=== PATIENT | female | born 1960 | race Two or more races ===

== ENCOUNTER 2024-03-27 18:39 | Observation (INO) ==
--- NOTE | 2024-03-27 18:46 | ED Triage Note ---
Date of Service March 27, 2024 Provider in Triage Author: Jake Elizabeth A History of Present Illness This patient was briefly evaluated while in triage. An abbreviated physical exam was performed. This patient is a 63-year-old Female who presents to the ED for evaluation of abnormal outpatient labs. Patient had PCP visit 5 days ago and had routine Diabetic labs. She is known diabetic. Labs returned today with sugar over 400. Not on any RX meds. Takes cinnamon and otc supplements. Physical Exam Limited Triage Exam: VITALS: Vitals are noted on the nurse's note and reviewed by myself. Vital signs stable. GENERAL: Well-developed, well-nourished, black female, who is in no acute distress and resting comfortably. Patient is cooperative with the examination. HEART: Regular rate and rhythm without murmurs gallops or rubs. LUNGS: Clear to auscultation bilaterally without wheezes, rales or rhonchi. No retractions or accessory muscle use. NEURO: Patient was alert and oriented to person place and time. CN II through XII grossly intact. Initial orders for labs and / or imaging were placed and patient was placed in the waiting area until a bed is available. Please see further documentation for the full ED course. MDM / Impression Impression Impression: Acute hyperglycemia, Hypertension, Noncompliance with medications, Anemia Impression: Hypertension Qualifiers: Hypertension type: unspecified Qualified Code(s): I10 - Essential (primary) hypertension Anemia Qualifiers: Anemia type: unspecified type Qualified Code(s): D64.9 - Anemia, unspecified
[2024-03-27 19:37] LABS: Basophils # (auto) 0.04 K/uL (0.00-0.20); Basophils % (auto) 0.5 %; Eosinophils # (auto) 0.19 K/uL (0.00-0.50); Eosinophils % (auto) 2.5 %; Hematocrit (blood only) 31.9 % (37.0-47.0); Hemoglobin 10.9 g/dl (12.0-16.0); Immature Granulocytes # (auto) 0.02 K/uL (0.01-0.20); Immature Granulocytes % (auto) 0.3 %; Lymphocytes # (auto) 2.01 K/uL (1.20-3.40); Lymphocytes % (auto) 26.1 %; Mean Corpuscular Hemoglobin 28.4 pg (25.0-34.0); Mean Corpuscular Hgb Conc 34.2 g/dL (32.0-36.0); Mean Corpuscular Volume 83.1 fL (80.0-100.0); Mean Platelet Volume 10.3 fL (9.4-12.4); Monocytes # (auto) 0.56 K/uL (0.11-0.59); Monocytes % (auto) 7.3 %; Neutrophils # (auto) 4.87 K/uL (1.40-6.50); Neutrophils % (auto) 63.3 %; Platelet Count 280 K/uL (130-400); RDW Coefficient of Variation 12.4 % (11.5-14.5); RDW Standard Deviation 37.6 fL (36.4-46.3); Red Blood Count 3.84 M/uL (4.20-5.40); White Blood Count 7.69 K/ul (4.8-10.8)
[2024-03-27 19:52] LABS: Albumin Level 3.5 gm/dl (3.4-5.0); BUN Creatinine Ratio 26.7 (10-20); Bilirubin,Total 0.2 mg/dl (0.2-1.0); Calcium 9.3 mg/dl (8.6-10.3); Creatinine Clr Calc Pharmacy 35.9 ml/min; Est GFR (African American) 49.7 ml/min; Est GFR (Non-African American) 42.9 ml/min; Globulin 3.5 gm/dl (2.5-4.0); Potassium 4.2 mmol/L (3.5-5.1)
[2024-03-27] MEDS: SODIUM CHLORIDE 0.9% 1,000 ML IV SCH (20:03)
[2024-03-27 20:10] LABS: Troponin I High Sensitivity 13.6 pg/ml (0-14)
[2024-03-27] MEDS: NovoLIN-R INSULIN PER UNIT CHARGE IV STA (20:37)
[2024-03-27] MEDS: LABETALOL HCL IV 5 MG/ML 20ML IV STA (20:37)
[2024-03-27] MEDS: SODIUM CHLORIDE 0.9% 500 ML IV ONE (20:38)
--- NOTE | 2024-03-27 20:43 | Emergency Department Note ---
Impression & Plan Acute hyperglycemia, Hypertension, Noncompliance with medications, Anemia ED Provider Note NAME: GILLES WONG AGE: 63 SEX: F : 1960 ARRIVES VIA: Walk-In INFORMANT: [Patient] ED PROVIDER(S): [Anthony South MD] CHIEF COMPLAINT: Hyperglycemia HISTORY OF PRESENT ILLNESS: The patient is a 63-year-old female with diabetes. She stopped taking her glipizide around 2 years ago. The patient had lab work performed in the outpatient setting and her sugar was over 400. She has lost around 15 pounds of weight. She was referred to the ER. Patient has been trying naturopathic remedies, she has been using cinnamon to control her blood sugar. The patient states that she was dizzy last night after eating, she has not had syncope. There is no chest pain, she is not short of breath. No fever. She is urinating frequently but this is a common thing for her. She does not feel excessively thirsty. In triage, she was noted to be hypertensive. PMHx/PSHx/Social Hx: See Below PHYSICAL EXAM: GENERAL: Patient is in no acute distress. HEENT: No acute trauma, normocephalic atraumatic, mucous membranes moist, no nasal congestion. NECK: No stridor, no adenopathy, no meningismus, trachea is midline. LUNGS: Clear to auscultation bilaterally, no wheeze, no rhonchi, breath sounds equal. HEART: 2/6 systolic murmur, regular rate and rhythm. ABDOMEN: Soft, nontender, no peritonitis. EXTREMITIES: No cyanosis, full range of motion of all the joints without pain or difficulty. NEUROLOGIC: Oriented x 3, no acute motor or sensory deficits, no focal weakness. SKIN: No jaundice, no diaphoresis. DIFFERENTIAL DIAGNOSIS: Medication noncompliance, dehydration, electrolyte imbalance, anemia, UTI, uncontrolled hypertension, among others. EMERGENCY DEPARTMENT PROCEDURES: MEDICAL DECISION MAKING: There is no leukocytosis. A mild anemia was seen with a hemoglobin of 10.9. There was a normal platelet count. VBG did not show any significant acidosis. Renal panel testing shows a creatinine elevation at 1.31, likely from some dehydration. Sodium was low at 130, likely from the glucose value of over 500. No concerning liver enzyme elevation. No evidence for pancreatitis. ECG shows a sinus rhythm, no obvious acute ischemia. Cardiac enzyme testing x 1 was not consistent with acute cardiac injury. Urinalysis showed glucose and some dehydration, no findings of infection. On exam, the patient was not toxic or febrile. The patient received IV saline for hydration. She was given 1.5 L. She received IV labetalol for her hypertension. She was given IV insulin for the high sugar value. The patient is hypertensive, she is hyperglycemic. She has had weight loss, she had stopped her medications. Given the severe hyperglycemia, I do think the patient will require a hospital stay. I did speak with the patient and case management. The on-call hospitalist was consulted. Of note, the patient's blood pressure has decreased with the labetalol, her glucose has decreased to the 200s with the IV fluids and IV insulin. Prior/Outside records/notes reviewed: Today's family practice note describing her presentation and the need for referral to the ER. ECG per my interpretation: Indication was hypertension and weakness. The ECG shows a sinus rhythm with a fairly short MS. The rate is 95. There is an old septal infarct. There is some nonspecific ST change noted primarily along the lateral leads. There is no acute ST elevation. No PVCs. The QTc is 427. Continuous Cardiac Monitoring per my interpretation: An order was placed for continuous cardiac monitoring. The monitor shows a rate of 95 with normal sinus rhythm. Imaging/x-ray results per my interpretation: Chronic Medical/Social conditions affecting care: Medication noncompliance. Care/Management discussed with: Case management, the on-call hospitalist. Level of care consideration(s): After review of the information above and other included data: --I believe the patient requires escalation of care to admission DISPOSITION: Admission Past Med/Surg History Problem List (Updated 03/28/24 @ 00:47 by Anthony South MD) Anemia (Acute) Noncompliance with medications (Acute) Hypertension (Acute) Acute hyperglycemia (Acute) Medical History Type 2 diabetes mellitus Surgical History Hx of section 1992 Family History Sister Breast cancer Diabetes Hypertension Mother Hypertension Denies family history of Ovarian cancer Prostate cancer Lung cancer Colorectal cancer Social History Smoking Status: Never smoker Second Hand Exposure: No; Do You Dip or Chew Tobacco: No; Hx Alcohol Use: Yes Alcohol type: wine Alcohol Intake Frequency: 2-3 x/Week Hx Substance Use: No Visual Impairment: Limited Hearing Ability: Normal marital status: marital status details: Current Living Situation: Alone current occupational status: unemployed How many Children do You have: 3 Feels Safe at Home: Yes Childhood Exposure to Second-Hand Smoke: No Diet: regular Diet Comment: well balanced diet caffeine: Yes (coffee ) during the past year weight has: decreased > 10 lbs Dental Care, Regularly: No Physical Activity Frequency: Daily Seatbelt Use: always Sunscreen Use: No Assistive Devices: Glasses Allergies Allergies Allergy/AdvReac Type Severity Reaction Status Date / Time No Known Allergies Allergy Verified 03/27/24 20:42 Home Meds Home Medications Medication Instructions Recorded Confirmed ascorbic acid 30 mg-collagen, 1 tab PO DAILY 03/27/24 03/27/24 hydrolyzed 833.3 mg tablet (Collagen Skin Renewal) cholecalciferol (vitamin D3) 25 0 mcg PO DAILY 03/27/24 03/27/24 mcg (1,000 unit) capsule (Vitamin D3) cinnamon bark 500 mg capsule 500 mg PO DAILY 03/27/24 03/27/24 (Cinnamon) cod liver oil 1 cap PO DAILY 03/27/24 03/27/24 magnesium oxide 0 mg PO DAILY 03/27/24 03/27/24 multivitamin 1 tab PO DAILY 03/27/24 03/27/24 omega-3 fatty acids 1,000 mg 1,000 mg PO DAILY 03/27/24 03/27/24 capsule Results & Data (ED) Vital Signs Vital Signs - 24 hr 03/27/24 18:42 03/27/24 20:01 03/27/24 20:04 Temperature 36.9 C Temperature Source Skin Pulse Rate 71 Pulse Rate [Apical] 96 H Pulse Rate from SpO2 Sensor Pulse Rhythm [Apical] Regular Respiratory Rate 18 20 Respiratory Effort / Characteristics Non-Labored Spontaneous Respiratory Depth Normal Respiratory Pattern Regular Blood Pressure 180/87 H 199/105 H Blood Pressure Mean 118 121 Pulse Oximetry 98 98 Oxygen Delivery Method Room Air Room Air Sepsis Recent Fever Within 48 Hours No Sepsis New/Unexplained Change in Mental Status No Sepsis Action Taken by Nursing No Action Required 03/27/24 20:12 03/27/24 20:21 03/27/24 20:30 Temperature Temperature Source Pulse Rate 95 H 94 H 96 H Pulse Rate [Apical] Pulse Rate from SpO2 Sensor 95 H 94 H 96 H Pulse Rhythm [Apical] Respiratory Rate 15 10 L 14 Respiratory Effort / Characteristics Respiratory Depth Respiratory Pattern Blood Pressure Blood Pressure Mean Pulse Oximetry 99 100 100 Oxygen Delivery Method Sepsis Recent Fever Within 48 Hours Sepsis New/Unexplained Change in Mental Status Sepsis Action Taken by Nursing 03/27/24 20:30 03/27/24 20:30 03/27/24 20:37 Temperature Temperature Source Pulse Rate 95 H Pulse Rate [Apical] Pulse Rate from SpO2 Sensor Pulse Rhythm [Apical] Respiratory Rate Respiratory Effort / Characteristics Respiratory Depth Respiratory Pattern Blood Pressure 200/112 H 200/112 H 200/112 H Blood Pressure Mean 147 147 Pulse Oximetry Oxygen Delivery Method Sepsis Recent Fever Within 48 Hours Sepsis New/Unexplained Change in Mental Status Sepsis Action Taken by Nursing 03/27/24 20:39 03/27/24 20:43 03/27/24 20:45 Temperature Temperature Source Pulse Rate 97 H 97 H Pulse Rate [Apical] Pulse Rate from SpO2 Sensor 97 H 98 H Pulse Rhythm [Apical] Respiratory Rate 16 19 Respiratory Effort / Characteristics Respiratory Depth Respiratory Pattern Blood Pressure 195/90 H Blood Pressure Mean 135 Pulse Oximetry 100 100 Oxygen Delivery Method Sepsis Recent Fever Within 48 Hours Sepsis New/Unexplained Change in Mental Status Sepsis Action Taken by Nursing 03/27/24 20:45 03/27/24 20:45 03/27/24 20:51 Temperature Temperature Source Pulse Rate 96 H Pulse Rate [Apical] Pulse Rate from SpO2 Sensor 96 H Pulse Rhythm [Apical] Respiratory Rate 17 Respiratory Effort / Characteristics Respiratory Depth Respiratory Pattern Blood Pressure 181/90 H 181/90 H Blood Pressure Mean 101 101 Pulse Oximetry 100 Oxygen Delivery Method Sepsis Recent Fever Within 48 Hours Sepsis New/Unexplained Change in Mental Status Sepsis Action Taken by Nursing 03/27/24 20:56 03/27/24 21:00 03/27/24 21:00 Temperature Temperature Source Pulse Rate 96 H 97 H Pulse Rate [Apical] Pulse Rate from SpO2 Sensor 97 H Pulse Rhythm [Apical] Respiratory Rate 16 Respiratory Effort / Characteristics Respiratory Depth Respiratory Pattern Blood Pressure 181/90 H 169/89 H Blood Pressure Mean 114 Pulse Oximetry 97 Oxygen Delivery Method Sepsis Recent Fever Within 48 Hours Sepsis New/Unexplained Change in Mental Status Sepsis Action Taken by Nursing 03/27/24 21:12 03/27/24 21:15 03/27/24 21:15 Temperature Temperature Source Pulse Rate 97 H 95 H Pulse Rate [Apical] Pulse Rate from SpO2 Sensor 97 H 95 H Pulse Rhythm [Apical] Respiratory Rate 21 15 Respiratory Effort / Characteristics Respiratory Depth Respiratory Pattern Blood Pressure 176/93 H Blood Pressure Mean 115 Pulse Oximetry 98 98 Oxygen Delivery Method Sepsis Recent Fever Within 48 Hours Sepsis New/Unexplained Change in Mental Status Sepsis Action Taken by Shelter Medications Current Medication List: was personally reviewed by me Laboratory Data Attestation: I reviewed the patient's lab results. 03/27/24 19:25 03/27/24 19:25 Lab Results 03/27/24 03/27/24 03/27/24 Range/Units 19:25 20:37 20:58 WBC 7.69 (4.8-10.8) K/ul RBC 3.84 L (4.20-5.40) M/uL Hgb 10.9 L (12.0-16.0) g/dl Hct 31.9 L (37.0-47.0) % MCV 83.1 (80.0-100.0) fL MCH 28.4 (25.0-34.0) pg MCHC 34.2 (32.0-36.0) g/dL RDW Std Deviation 37.6 (36.4-46.3) fL RDW Coeff of Nohemi 12.4 (11.5-14.5) % Plt Count 280 (130-400) K/uL MPV 10.3 (9.4-12.4) fL Immature Gran % (Auto) 0.3 % Neut % (Auto) 63.3 % Lymph % (Auto) 26.1 % Barren % (Auto) 7.3 % Eos % (Auto) 2.5 % Baso % (Auto) 0.5 % Neut # (Auto) 4.87 (1.40-6.50) K/uL Lymph # (Auto) 2.01 (1.20-3.40) K/uL Barren # (Auto) 0.56 (0.11-0.59) K/uL Eos # (Auto) 0.19 (0.00-0.50) K/uL Baso # (Auto) 0.04 (0.00-0.20) K/uL Immature Gran # (Auto) 0.02 (0.01-0.20) K/uL VBG pH 7.39 (7.36-7.41) VBG pCO2 50 (38-50) mmHg VBG pO2 22 mmHg VBG HCO3 30 mmol/L VBG O2 Saturation < 60.0 % VBG Base Excess 4.2 mEq/L Sodium 130 L (136-145) mmol/L Potassium 4.2 (3.5-5.1) mmol/L Chloride 96 L (98-107) mmol/L Carbon Dioxide 28 (21-32) mmol/L Anion Gap 6 (3-11) BUN 35 H (6-23) mg/dl Creatinine 1.31 H (0.6-1.2) mg/dl Est Cr Clr Drug Dosing 35.9 ml/min Est GFR ( Amer) 49.7 ml/min Est GFR (Non-Af Amer) 42.9 ml/min BUN/Creatinine Ratio 26.7 H (10-20) Glucose 522 H* (70-99(Fasting)) mg/dl POC Glucose 453 H* (70-99) mg/dl Calcium 9.3 (8.6-10.3) mg/dl Magnesium 1.8 (1.7-2.4) mg/dl Iron (35-150) mcg/dl TIBC (250-450) mcg/dl Unsaturated IBC (155-355) mcg/dl Transferrin % Sat (15-50) % Ferritin (8-388) ng/ml Total Bilirubin 0.2 (0.2-1.0) mg/dl AST 18 (13-39) U/L ALT 12 (7-52) U/L Alkaline Phosphatase 97 (34-104) U/L Troponin I High Sens 13.6 (0-14) pg/ml Total Protein 7.0 (6.0-8.3) gm/dl Albumin 3.5 (3.4-5.0) gm/dl Globulin 3.5 (2.5-4.0) gm/dl Albumin/Globulin Ratio 1.0 (0.9-2) Lipase 59 (11-82) U/L 03/27/ Range/Units 20:59 WBC (4.8-10.8) K/ul RBC (4.20-5.40) M/uL Hgb (12.0-16.0) g/dl Hct (37.0-47.0) % MCV (80.0-100.0) fL MCH (25.0-34.0) pg MCHC (32.0-36.0) g/dL RDW Std Deviation (36.4-46.3) fL RDW Coeff of Nohemi (11.5-14.5) % Plt Count (130-400) K/uL MPV (9.4-12.4) fL Immature Gran % (Auto) % Neut % (Auto) % Lymph % (Auto) % Barren % (Auto) % Eos % (Auto) % Baso % (Auto) % Neut # (Auto) (1.40-6.50) K/uL Lymph # (Auto) (1.20-3.40) K/uL Barren # (Auto) (0.11-0.59) K/uL Eos # (Auto) (0.00-0.50) K/uL Baso # (Auto) (0.00-0.20) K/uL Immature Gran # (Auto) (0.01-0.20) K/uL VBG pH (7.36-7.41) VBG pCO2 (38-50) mmHg VBG pO2 mmHg VBG HCO3 mmol/L VBG O2 Saturation % VBG Base Excess mEq/L Sodium (136-145) mmol/L Potassium (3.5-5.1) mmol/L Chloride (98-107) mmol/L Carbon Dioxide (21-32) mmol/L Anion Gap (3-11) BUN (6-23) mg/dl Creatinine (0.6-1.2) mg/dl Est Cr Clr Drug Dosing ml/min Est GFR ( Amer) ml/min Est GFR (Non-Af Amer) ml/min BUN/Creatinine Ratio (10-20) Glucose (70-99(Fasting)) mg/dl POC Glucose (70-99) mg/dl Calcium (8.6-10.3) mg/dl Magnesium (1.7-2.4) mg/dl Iron 55 (35-150) mcg/dl TIBC 237 L (250-450) mcg/dl Unsaturated IBC 182 (155-355) mcg/dl Transferrin % Sat 23 (15-50) % Ferritin 173.3 (8-388) ng/ml Total Bilirubin (0.2-1.0) mg/dl AST (13-39) U/L ALT (7-52) U/L Alkaline Phosphatase (34-104) U/L Troponin I High Sens (0-14) pg/ml Total Protein (6.0-8.3) gm/dl Albumin (3.4-5.0) gm/dl Globulin (2.5-4.0) gm/dl Albumin/Globulin Ratio (0.9-2) Lipase (11-82) U/L Administered Medications Atorvastatin Calcium (Atorvastatin 20 Mg Tab) 20 mg PO QPM JEM Stop: 04/26/24 21:39 Last Admin: 03/27/24 22:11 Dose: 20 mg Documented By: FREYA Insulin Aspart (Insulin Aspart Per Unit Charge) 0 units SC Q6H JEM Stop: 04/26/24 21:29 Last Admin: 03/27/24 21:48 Dose: 4 units Documented By: FREYA Co-signed By: ANGELIQUE Insulin Glargine (Lantus Per Unit Charge) 15 units SQ BID JEM Stop: 04/26/24 21:14 Last Admin: 03/27/24 21:48 Dose: 15 units Documented By: FREYA Co-signed By: ANGELIQUE Discontinued Medications Sodium Chloride (Nss) 1,000 mls @ 999 mls/hr IV .Q1H1M JEM Stop: 03/27/24 20:00 Last Infusion: 03/27/24 21:09 Dose: Infused Documented By: Admin: 03/27/24 20:03 Dose: 999 mls/hr Documented By: FREYA Sodium Chloride (Nss) 500 mls @ 999 mls/hr IV .Q31M ONE Stop: 03/27/24 21:01 Last Infusion: 03/27/24 21:09 Dose: Infused Documented By: Admin: 03/27/24 20:38 Dose: 999 mls/hr Documented By: FREYA Insulin Human Regular (Novolin-R Insulin Per Unit Charge) 10 units IV NOW STA Stop: 03/27/24 20:32 Last Admin: 03/27/24 20:37 Dose: 10 units Documented By: FREYA Co-signed By: BARRIE Labetalol HCl (Labetalol Hcl Iv 5 Mg/Ml 20ml) 10 mg IV NOW STA Stop: 03/27/24 20:32 Last Admin: 03/27/24 20:37 Dose: 10 mg Documented By: FREYA Co-signed By: BARRIE Lisinopril (Lisinopril 10 Mg Tab) 10 mg PO NOW STA Stop: 03/27/24 21:38 Last Admin: 03/27/24 22:11 Dose: 10 mg Documented By: FREYA Discharge Plan Visit Data Chief Complaint: Hyperglycemia Stated Complaint: ABN BLOOD TEST ED Provider: Anthony South Discharge Problem: Acute hyperglycemia, Hypertension, Noncompliance with medications, Anemia Patient Disposition: Admitted As Inpatient Condition: Fair Discharge Instructions Interventions: ED Discharge Assessment Last Done: 03/27/24 22:04 Discharge Problem: Hypertension Qualifiers: Hypertension type: unspecified Qualified Code(s): I10 - Essential (primary) hypertension Anemia Qualifiers: Anemia type: unspecified type Qualified Code(s): D64.9 - Anemia, unspecified
[2024-03-27 21:11] LABS: Base Excess VBG 4.2 mEq/L; HCO3 VBG 30 mmol/L; Oxygen Saturation VBG < 60.0 %; PCO2 VBG 50 mmHg (38-50); PO2 VBG 22 mmHg; pH VBG 7.39 (7.36-7.41)
[2024-03-27 21:12] LABS: Magnesium 1.8 mg/dl (1.7-2.4)
[2024-03-27] MEDS ORDERED: GLUCOSE 10 TAB/TUBE PO PRN (21:15)
[2024-03-27] MEDS ORDERED: GLUCOSE 40% GEL 15 GM TUBE PO PRN (21:15)
[2024-03-27] MEDS ORDERED: CARBOHYDRATES FOR HYPOGLYCEMIA PO PRN (21:15)
[2024-03-27] MEDS ORDERED: DEXTROSE 50% 50 ML SYRINGE IV PRN (21:15)
[2024-03-27] MEDS ORDERED: GLUCAGON FOR INJ 1 MG VIAL SQ PRN (21:15)
--- NOTE | 2024-03-27 21:38 | History & Physical Report ---
Date of Service March 27, 2024 Assessment & Plan (1) Type 2 diabetes mellitus: Plan: Assessment: 1. Diabetes mellitus type 2 very uncontrolled. A1c is 13.8. Will do twice daily Lantus. Will do insulin sliding scale as well. Diabetes education consultation. Oral antihyperglycemic's can be considered such as Jardiance and metformin excetra pending patient's clinical course. 2. Uncontrolled essential hypertension. Will begin with lisinopril 10 mg daily. She did have a dose of labetalol. Will order some as needed hydralazine. 3. Pseudohyponatremia treated diabetes recheck sodium level in the morning. 4. Anemia unknown etiology. Will obtain iron studies and stools for occult blood. 5. Acute versus chronic kidney injury. Creatinine is 1.3. She has had a liter and a half of saline. Will see what her repeat creatinine is in the morning. 5. Hyperlipidemia. Total cholesterol is 310. LDL is 161. Will start Lipitor 20 mg daily. Plan: As described above. Please refer to orders for further planning. Patient seems that she may not be compliant with our recommendations. She wants to treat her things naturally. We explained to her that importance of treating her metabolic syndrome. Will order the medications as appropriate and see how she does make further recommendations pending clinical course. History of Present Illness Chief Complaint: Hyperglycemia Primary Care Provider: Raghavendra Marquis DO This is a 63-year-old female patient this time who has a history of hypertension and diabetes mellitus. She used to be treated for both of these things medically. She is unsure which blood pressure medication she was on but she used to be on glipizide for diabetes. The patient stopped all her prescription medications approximately 2 years ago in an attempt to treat her disease processes from a naturopathic holistic point of view. Today she had outpatient labs and had a blood glucose greater than 400 and was sent to the ER for further evaluation and treatment. In the ER vital labs he was found to have a blood glucose level of 522 she was nonketotic she was not acidotic. Creatinine was 1.3. She had pseudohyponatremia at 130. Corrected sodium was within normal limits. Hemoglobin was noted to be 10.9 g/dL unknown if this is acute or chronic. The patient has been residing in [place] till recently she moved back to [place] with her youngest son who is having medical issues including depression. Course in the emergency department the patient received 10 mg of IV labetalol she received 10 units of regular insulin IV. She received a liter and a half of saline. We are called admit patient for further evaluation and treatment. Allergies Allergy/AdvReac Type Severity Reaction Status Date / Time No Known Allergies Allergy Verified 03/27/24 20:42 Home Medications Medication Instructions Recorded Confirmed Type ascorbic acid 30 mg-collagen, 1 tab PO DAILY 03/27/24 03/27/24 History hydrolyzed 833.3 mg tablet (Collagen Skin Renewal) cholecalciferol (vitamin D3) 25 0 mcg PO DAILY 03/27/24 03/27/24 History mcg (1,000 unit) capsule (Vitamin D3) cinnamon bark 500 mg capsule 500 mg PO DAILY 03/27/24 03/27/24 History (Cinnamon) cod liver oil 1 cap PO DAILY 03/27/24 03/27/24 History magnesium oxide 0 mg PO DAILY 03/27/24 03/27/24 History multivitamin 1 tab PO DAILY 03/27/24 03/27/24 History omega-3 fatty acids 1,000 mg 1,000 mg PO DAILY 03/27/24 03/27/24 History capsule Past Med/Surg History Problem List (Updated 03/22/24 @ 15:25 by Raghavendra Marquis DO) Type 2 diabetes mellitus Surgical History Hx of section Family History Sister Breast cancer Diabetes Hypertension Mother Hypertension Denies family history of Ovarian cancer Prostate cancer Lung cancer Colorectal cancer Social History Smoking Status: Never smoker Second Hand Exposure: No; Do You Dip or Chew Tobacco: No; Hx Alcohol Use: Yes Alcohol type: wine Alcohol Intake Frequency: 2-3 x/Week Hx Substance Use: No Visual Impairment: Limited Hearing Ability: Normal marital status: marital status details: Current Living Situation: Alone current occupational status: unemployed How many Children do You have: 3 Feels Safe at Home: Yes Childhood Exposure to Second-Hand Smoke: No Diet: regular Diet Comment: well balanced diet caffeine: Yes (coffee ) during the past year weight has: decreased > 10 lbs Dental Care, Regularly: No Physical Activity Frequency: Daily Seatbelt Use: always Sunscreen Use: No Assistive Devices: Glasses Review of Systems Review of Systems: A 10 point review of system was obtained and unless otherwise stated here or in history of present illness are negative and noncontributory to chief complaint. Physical Exam Physical Exam: In General: In general 63-year-old female again if patient is send is alert and oriented x 3. She interacts appropriately and pleasantly. The patient is adamant that she does not want insulin long-term. She is adamant she does not want to go on metformin which she was on in the past. We told her at this point insulin is recommended given her A1c of 13.8%. HEENT: Normocephalic atraumatic pupils are equal round and reactive to light bilaterally. No scleral icterus no conjunctival injection external auditory canals are patent septum is in the midline nose is without discharge oral mucosa is pink and moist without lesion. NECK: Supple no rigidity no lymphadenopathy no thyromegaly no carotid bruits no JVD no masses. HEART: Regular rate and rhythm I do not appreciate any ectopy or rub. No murmur. LUNGS: Clear to auscultation bilaterally and anteriorly with no evidence of adventitious sounds/wheezes rales or rhonchi. ABDOMEN: Soft nontender, no rebound, no peritoneal signs, positive bowel sounds, no appreciable organomegaly. EXTREMITIES: Intact, no peripheral cyanosis, clubbing or edema. Strength is 5 out of 5 in extremities x4, no pathological reflexes. NEUROLOGICAL: Cranial nerves II through XII are grossly intact with no focal deficit elicited upon examination. No tremor. Results & Data Results & Data Vital Signs (Past 12 Hours) Vital Signs Temp Pulse Pulse Resp BP Pulse Ox O2 Del Method 03/27/24 20:56 96 H 181/90 H 03/27/24 20:51 96 H 17 100 03/27/24 20:45 181/90 H 03/27/24 20:45 181/90 H 03/27/24 20:45 97 H 19 100 03/27/24 20:43 195/90 H 03/27/24 20:39 97 H 16 100 03/27/24 20:37 95 H 200/112 H 03/27/24 20:30 200/112 H 03/27/24 20:30 200/112 H 03/27/24 20:30 96 H 14 100 03/27/24 20:21 94 H 10 L 100 03/27/24 20:12 95 H 15 99 03/27/24 20:04 199/105 H 03/27/24 20:01 96 H 20 98 Room Air 03/27/24 18:42 36.9 C 71 18 180/87 H 98 Room Air Code Status & VTE Plan Code Status DO NOT RESUSCITATE. 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 She is alert and oriented x 3 she wishes to be a DO NOT RESUSCITATE and she is of sound mind therefore we will do if there is a DO NOT RESUSCITATE. This was discussed in detail with her. VTE Prophylaxis Plan VTE Prophylaxis will be ordered: Yes PG Care Time/CCT Total # of Minutes Spent Total Time Spent with Patient: Total time spent is greater than 50% in coordination of care (as documented) at patient's floor/unit and/or counseling patient: Coding Level of Care Code 76667 INT INP/OBS CARE 3/75MIN Diagnoses Type 2 diabetes mellitus E11.9
[2024-03-27] MEDS: LANTUS PER UNIT CHARGE SQ SCH (21:48)
[2024-03-27] MEDS: INSULIN ASPART PER UNIT CHARGE SC SCH (21:48)
[2024-03-27] MEDS: lisinopril 10 MG TAB PO STA (22:11)
[2024-03-27] MEDS: ATORVASTATIN 20 MG TAB PO SCH (22:11)
[2024-03-27 22:27] LABS: Ferritin 173.3 ng/ml (8-388)
[2024-03-27 22:52] LABS: Appearance Urine Clear (Clear); Bacteria Urine Automated None Seen (None Seen); Bilirubin Urine Negative (Negative); Blood Urine Negative (Negative); Cast Urine Automated 0-2 /lpf (0-2); Color Urine Yellow; Glucose Urine UA 3+ (Negative); Ketones Urine Trace (Negative); Leukocyte Esterase Urine Negative (Negative); Nitrite Urine Negative (Negative); Protein Urine 2+ (Negative); RBC Urine Automated 0-2 /hpf (0-2); Specific Gravity Urine 1.024 (1.000-1.030); Urobilinogen Urine Negative (Negative)
[2024-03-28] MEDS: hydrALAZINE HCL 20 MG/ML VIAL IV PRN (00:55)
[2024-03-28] MEDS ORDERED: ACETAMINOPHEN 1,000 MG/100 ML VIAL IV PRN (04:09)
[2024-03-28] MEDS ORDERED: INSULIN ASPART PER UNIT CHARGE SC SCH (07:30)
[2024-03-28] MEDS ORDERED: MAGNESIUM OXIDE 200 MG PO SCH (09:00)
[2024-03-28] MEDS ORDERED: CHOLECALCIFEROL 25 MCG (1000 UNITS) TAB PO SCH (09:00)
[2024-03-28] MEDS: lisinopril 10 MG TAB PO SCH (09:21)
[2024-03-28] MEDS: INSULIN ASPART PER UNIT CHARGE SC SCH (09:21)
--- NOTE | 2024-03-28 10:09 | Electrocardiogram Report ---
Test Reason : Blood Pressure : / mmHG Vent. Rate : 095 BPM Atrial Rate : 095 BPM P-R Int : 110 ms QRS Dur : 060 ms QT Int : 340 ms P-R-T Axes : 033 022 005 degrees QTc Int : 427 ms Sinus rhythm with short VA Left atrial enlargement Possible Old Septal infarct Abnormal ECG No previous ECGs available Confirmed by Guillermo Davidson ([id number]) on 03/28/2024 10:08:52 AM Referred By: Raghavendra Marquis Confirmed By:Guillermo Davidson
[2024-03-28 10:39] LABS: Hemoglobin 9.7 g/dl (12.0-16.0); Mean Corpuscular Hemoglobin 28.4 pg (25.0-34.0); Mean Corpuscular Hgb Conc 33.4 g/dL (32.0-36.0); Mean Platelet Volume 10.1 fL (9.4-12.4); Platelet Count 220 K/uL (130-400); RDW Coefficient of Variation 12.5 % (11.5-14.5); RDW Standard Deviation 38.6 fL (36.4-46.3); Red Blood Count 3.41 M/uL (4.20-5.40); White Blood Count 8.55 K/ul (4.8-10.8)
[2024-03-28 10:40] LABS: Calcium 8.8 mg/dl (8.6-10.3); Creatinine Clr Calc Pharmacy 45.6 ml/min; Est GFR (African American) 66.5 ml/min; Est GFR (Non-African American) 57.4 ml/min; Potassium 4.2 mmol/L (3.5-5.1)
--- NOTE | 2024-03-28 19:53 | Hospitalist Progress Note ---
Date of Service March 28, 2024 Assessment & Plan (1) Uncontrolled diabetes mellitus with hyperglycemia, without long-term current use of insulin: Plan: Patient presented after outpatient lab work revealed blood sugar > 400 and was advised to present to ED. - A1c is 13.8. Diabetes mellitus type 2 very uncontrolled. - Subjectively, patient does report signs and symptoms of hyperglycemia, including neuropathy and blurred vision. - Given lower BMI, suspect hyperglycemia is likely due to insulin deficiency/beta cell burnout. - Pseudohyponatremia in setting of hyperglycemia. Sodium 138 on 03/28. - Diabetes education consultation. The only oral medication patient agrees to his glipizide. She refuses metformin. GLP-1 likely not ideal due to weight loss over the past 3 years/normal BMI. Jardiance alone without insulin would likely increased risk for euglycemia DKA. DPP-4 likely ineffective in getting blood glucose values to target. 1.) Transition to once daily Lantus in AM. 2.) Further insulin adjustments, as needed, to help maintain BG values in a safe range. 3.) Will continue to monitor BG values and follow-up for additional diabetes assessment/education prn. -- certified adapted physical educator plans to meet with patient tomorrow, 03/29, to practice self injection. -- Review certified adapted physical educator note for recommendations/prescriptions needed at discharge. - I spoke with inpatient pharmacist about how many units of Lantus to give in a.m. as it was after hours and diabetes educator was no longer in house. Recommended 30 units in a.m. and to still give the 15 units of Lantus tonight, 03/28. - Unclear if patient is agreeable to meal time coverage. I would definitely recommend it given her A1c. NovoLog ordered continued at this time. - Patient recently established care with Dr. Raghavendra Marquis. She is agreeable to follow-up for diabetes care on discharge. (2) Hyperlipidemia: Plan: Total cholesterol is 310. LDL is 161. - Continue Lipitor 20 mg daily, started on admission. Hypertension - Uncontrolled essential hypertension. - Continue lisinopril 10 mg daily, started on admission. - PRN hydralazine ordered with parameters. (3) HARI (acute kidney injury): Plan: Acute versus chronic kidney injury. Creatinine 1.3 on admission. Given 1.5 L of saline. - Creatinine 03/28 1.03. BUN remains elevated, but decreased to 33. (4) Anemia: Plan: Anemia unknown etiology. - Hemoglobin 10.4 on admission. Hgb 9.7 on 03/28, most likely a dilutional effect from IVF. - Iron studies revealed iron 55, TIBC low at 237, unsaturated IBC 182, transferrin percent sat 23%, ferritin 173.3 - No signs of acute bleeding. Continue to monitor. - No indication for transfusion at this time. Plan Discussed case with diabetes educator Discussed case with pharmacist Educated patient on long-term effects of uncontrolled diabetes, hypertension, and hyperlipidemia CODE STATUS: DNR/DNI Admission and Anticipated Discharge Date Admission Date: March 27, 2024 Subjective Patient seen and evaluated at bedside in ED. She reported a headache this morning, but notes this was relieved with Tylenol. We had a lengthy discussion about the risks of uncontrolled diabetes, hypertension, and hyperlipidemia. Patient is subjectively not excited about taking medication, but she is a greeable. Patient is to meet with diabetes educator to discuss options for blood sugar control. Patient has no other complaints at this time. Physical Exam Physical Exam: General: No acute distress, nondiaphoretic, well-developed, well-nourished. Skin: The skin was without rashes, erythema, edema, or bruising. Cardiac: Regular rate and rhythm without murmurs gallops or rubs. Pulm: Clear to auscultation bilaterally without wheezes, rales or rhonchi. No respiratory distress. Abdominal: Soft, nontender, nondistended. Bowel sounds present. Neuro: A&O x3. No focal neurological deficits. Results & Data Results & Data Vital Signs (Past 12 Hours) Vital Signs Temp Pulse Pulse Resp BP BP Pulse Ox 03/28/24 17:55 89 03/28/24 16:56 86 03/28/24 13:00 36.8 C 85 20 158/83 H 99 03/28/24 10:00 88 15 139/75 100 03/28/24 09:00 87 16 158/83 H 100 03/28/24 08:09 81 13 124/75 100 O2 Del Method 03/28/24 17:55 03/28/24 16:56 03/28/24 13:00 Room Air 03/28/24 10:00 03/28/24 09:00 06/26/24 08:09 Laboratory Results Reviewed CBC Reviewed BMP Reviewed iron studies PG Care Time/CCT Total # of Minutes Spent Total Time Spent with Patient: Total time spent is greater than 50% in coordination of care (as documented) at patient's floor/unit and/or counseling patient: Coding Level of Care Code 61956 SUB INP/OBS CARE 3/50MIN Diagnoses Uncontrolled diabetes mellitus with hyperglycemia, without long-term current use of insulin E11.65 Hyperlipidemia E78.5 HARI (acute kidney injury) N17.9 Anemia D64.9 Anemia type: unspecified type (4) Anemia Anemia type: unspecified type Qualified Code(s): D64.9 - Anemia, unspecified
[2024-03-28] MEDS: ACETAMINOPHEN 325 MG TAB PO PRN (23:31)
[2024-03-29 07:11] LABS: Hematocrit (blood only) 29.7 % (37.0-47.0); Hemoglobin 9.8 g/dl (12.0-16.0); Mean Corpuscular Hemoglobin 28.2 pg (25.0-34.0); Mean Corpuscular Volume 85.6 fL (80.0-100.0); Mean Platelet Volume 10.4 fL (9.4-12.4); Platelet Count 239 K/uL (130-400); RDW Coefficient of Variation 12.7 % (11.5-14.5); RDW Standard Deviation 39.5 fL (36.4-46.3); Red Blood Count 3.47 M/uL (4.20-5.40); White Blood Count 7.56 K/ul (4.8-10.8)
--- NOTE | 2024-03-29 07:22 | Hospitalist Progress Note ---
Date of Service March 29, 2024 Assessment & Plan (1) Uncontrolled diabetes mellitus with hyperglycemia, without long-term current use of insulin: Plan: Patient presented after outpatient lab work revealed blood sugar > 400 and was advised to present to ED. - A1c is 13.8. Diabetes mellitus type 2 uncontrolled, pt had previously stopped outpt treatment - initialy presented with Pseudohyponatremia in setting of hyperglycemia. Sodium improved with glucose correction - Diabetes education consultation. The only oral medication patient agrees to his glipizide. She refuses metformin. GLP-1 likely not ideal due to weight loss over the past 3 years/normal BMI. Jardiance alone without insulin would likely increased risk for euglycemia DKA. DPP-4 likely ineffective in getting blood glucose values to target. 1.) Transition to once daily Lantus in AM. -- chief passenger ship steward/stewardess plans teach pt to practice self injection. - Recommended lantus 30 units in a.m. - Unclear if patient is agreeable to meal time coverage. I would definitely recommend it given her A1c. NovoLog ordered continued at this time. - Patient recently established care with Dr. Raghavendra Marquis. She is agreeable to follow-up for diabetes care on discharge. (2) Hyperlipidemia: Plan: Total cholesterol is 310. LDL is 161. - Continue Lipitor 20 mg daily, started on admission. Hypertension - Uncontrolled essential hypertension. - Continue lisinopril 10 mg daily, started on admission. - PRN hydralazine ordered with parameters. (3) HARI (acute kidney injury): Plan: Acute versus chronic kidney injury. resolved, has CKD3 and return to lisinopril for renal protection with DM (4) Anemia: Plan: Anemia unknown etiology, suspect inflamatory anemia - Hemoglobin 10.4 on admission. Hgb 9.7 on 03/28, most likely a dilutional effect from IVF. - Iron studies revealed iron 55, TIBC low at 237, unsaturated IBC 182, transferrin percent sat 23%, ferritin 173.3 - No signs of acute bleeding. - Plan CODE STATUS: DNR/DNI Admission and Anticipated Discharge Date Admission Date: March 27, 2024 Results & Data Results & Data Vital Signs (Past 12 Hours) Vital Signs Temp Pulse Pulse Resp BP Pulse Ox O2 Del Method 03/29/24 00:23 97.9 F 89 18 157/75 H 100 Room Air 03/28/24 22:00 87 03/28/24 19:41 98.2 F 82 18 137/74 100 Room Air PG Care Time/CCT Total # of Minutes Spent Total Time Spent with Patient: Total time spent is greater than 50% in coordination of care (as documented) at patient's floor/unit and/or counseling patient: Coding Diagnoses Uncontrolled diabetes mellitus with hyperglycemia, without long-term current use of insulin E11.65 Hyperlipidemia E78.5 HARI (acute kidney injury) N17.9 Anemia D64.9 Anemia type: unspecified type (4) Anemia Anemia type: unspecified type Qualified Code(s): D64.9 - Anemia, unspecified
[2024-03-29 07:31] LABS: BUN Creatinine Ratio 28.9 (10-20); Calcium 8.8 mg/dl (8.6-10.3); Creatinine Clr Calc Pharmacy 47.9 ml/min; Est GFR (African American) 71.5 ml/min; Est GFR (Non-African American) 61.7 ml/min; Potassium 3.8 mmol/L (3.5-5.1)
[2024-03-29] MEDS: LANTUS PER UNIT CHARGE SQ SCH (09:00)
[2024-03-29] MEDS ORDERED: LANTUS PER UNIT CHARGE SQ SCH (09:00)
--- NOTE | 2024-03-29 17:39 | Discharge Summary ---
Discharge Summary Date of Service March 29, 2024 Principal Dx & Hospital Course #1 = Principal Diagnosis (1) Uncontrolled diabetes mellitus with hyperglycemia, without long-term current use of insulin: Patient presented after outpatient lab work revealed blood sugar > 400 and was advised to present to ED. - A1c is 13.8. Diabetes mellitus type 2 uncontrolled, pt had previously stopped outpt treatment - initialy presented with Pseudohyponatremia in setting of hyperglycemia. Sodium improved with glucose correction - Diabetes education consultation. The only oral medication patient agrees to his glipizide. She refuses metformin. GLP-1 likely not ideal due to weight loss over the past 3 years/normal BMI. Jardiance alone without insulin would likely increased risk for euglycemia DKA. DPP-4 likely ineffective in getting blood glucose values to target. 1.) Transition to once daily Lantus 30 units in AM -- nurses educator did teach pt to practice self injection, pt feels proficient. - Patient recently established care with Dr. Raghavendra Marquis. She is agreeable to follow-up for diabetes care on discharge. (2) Hyperlipidemia: Total cholesterol is 310. LDL is 161. - Continue Lipitor 20 mg daily, started on admission. Hypertension - Uncontrolled essential hypertension. - Continue lisinopril 10 mg daily, re started (3) HARI (acute kidney injury): Acute versus chronic kidney injury. resolved, has CKD3 and return to lisinopril for renal protection with DM (4) Anemia: Anemia unknown etiology, suspect inflamatory anemia - Hemoglobin 10.4 on admission. Hgb 9.7 on 03/28, most likely a dilutional effect from IVF. - Iron studies revealed iron 55, TIBC low at 237, unsaturated IBC 182, transferrin percent sat 23%, ferritin 173.3 - No signs of acute bleeding. - Plan CODE STATUS: DNR/DNI Admission HPI Per Admitting Provider This is a 63-year-old female patient this time who has a history of hypertension and diabetes mellitus. She used to be treated for both of these things medically. She is unsure which blood pressure medication she was on but she used to be on glipizide for diabetes. The patient stopped all her prescription medications approximately 2 years ago in an attempt to treat her disease processes from a naturopathic holistic point of view. Today she had outpatient labs and had a blood glucose greater than 400 and was sent to the ER for further evaluation and treatment. In the ER vital labs he was found to have a blood glucose level of 522 she was nonketotic she was not acidotic. Creatinine was 1.3. She had pseudohyponatremia at 130. Corrected sodium was within normal limits. Hemoglobin was noted to be 10.9 g/dL unknown if this is acute or chronic. The patient has been residing in [place] till recently she moved back to [place] with her youngest son who is having medical issues including depression. Course in the emergency department the patient received 10 mg of IV labetalol she received 10 units of regular insulin IV. She received a liter and a half of saline. We are called admit patient for further evaluation and treatment. Discharge Exam pt awake and stable pt feels proficient at insulin injection Updated Medication List Medication Instructions Recorded Confirmed Type ascorbic acid 30 mg-collagen, 1 tab PO DAILY 03/27/24 03/27/24 History hydrolyzed 833.3 mg tablet (Collagen Skin Renewal) cholecalciferol (vitamin D3) 25 0 mcg PO DAILY 03/27/24 03/27/24 History mcg (1,000 unit) capsule (Vitamin D3) cinnamon bark 500 mg capsule 500 mg PO DAILY 03/27/24 03/27/24 History (Cinnamon) cod liver oil 1 cap PO DAILY 03/27/24 03/27/24 History magnesium oxide 0 mg PO DAILY 03/27/24 03/27/24 History multivitamin 1 tab PO DAILY 03/27/24 03/27/24 History omega-3 fatty acids 1,000 mg 1,000 mg PO DAILY 03/27/24 03/27/24 History capsule atorvastatin 20 mg tablet 20 mg PO QPM #30 tabs 03/29/24 Rx blood sugar diagnostic (OneTouch #100 ea 03/29/24 Rx Verio test strips) insulin glargine 100 unit/mL (3 30 unit (0.3 mL) subcut QAM #3 mL 03/29/24 Rx mL) subcutaneous pen (Lantus Solostar U-100 Insulin) lancets 33 gauge (OneTouch Delica #100 ea 03/29/24 Rx Plus Lancet) lisinopril 10 mg tablet 10 mg PO QAM #30 tabs 03/29/24 Rx pen needle, diabetic 32 gauge x #50 ea 03/29/24 Rx 32" (Comfort EZ Pen [place]) Hospital Stay Data Consultations 03/27/24 20:48 ED Decision to Admit Stat Pending Results Patient Have Any Pending Studies at Discharge: No Discharge Instructions Given to Patient (Per Discharging Provider) You will continue to feel better as your blood sugar levels stabalize within a reasonably safe range. Check your blood sugar at least 2 times a day upon waking/before breakfast and another time. Record these blood glucose measurements to discuss with primary care provider and nursing educator. Your goal should be that your glucose before meals to be in the 100-150 range. If checked after meals should be less than 200. If your blood sugars over 200 for 3 consecutive days or below 90 please contact your primary care provider or nursing educator. Take your Lantus once a day in the morning please. Total Time Total Time Spent Total Time Spent (In Minutes): It required greater than 30 minutes to prepare this patient for discharge. Coding Level of Care Code 00324 INP/OBS DISCH >30 MIN Diagnoses Uncontrolled diabetes mellitus with hyperglycemia, without long-term current use of insulin E11.65 Hyperlipidemia E78.5 HARI (acute kidney injury) N17.9 Anemia D64.9 Anemia type: unspecified type
== END 2024-03-29 13:12 | disposition home or self-care (01) | DRG 638 ==
LOC: ED 18:39 → SUATTDRO 21:19 → EDINP 21:19 → INTOOBSV 21:19 → 2N 03-28 17:14